=== PATIENT | male | born 1980 | race African-American/Black ===

== ENCOUNTER 2023-01-09 19:04 | Emergency (ER) | payer OTHER, SELFPAY ==
[2023-01-09] MEDS ORDERED: Tetracaine 0.5% PF 4 ML BOT ONE (20:07)
[2023-01-09] MEDS ORDERED: Erythromycin Base 0.5% Ophth Oint 3.5 gm Tube ONE (20:07)
[2023-01-09] MEDS ORDERED: Fluorescein Opthalmic Strip ONE (20:07)
== END 2023-01-09 20:13 | disposition home or self-care (01) ==
LOC: BURERS 19:04
DX: T15.92XA Foreign body on external eye, part unspecified, left eye, initial encounter (principal); X58.XXXA Exposure to other specified factors, initial encounter
CPT/HCPCS: 99283